=== PATIENT | male | born 2000 | race Caucasian/White ===

== ENCOUNTER 2019-03-13 10:09 | Emergency (ER) | payer SELFPAY ==
[~2019-03-13] VITALS: Ht 154.9 cm; Wt 77.0 kg
[2019-03-13] MEDS ORDERED: buprenorphine/naloxone 2-0.5mg sublingual tablet SL ONE (10:40)
[2019-03-13 11:53] VITALS: BP 103/58
[2019-03-13] MEDS ORDERED: buprenorphine/naloxone 8mg/2mg SL tablet SL PRN (12:00)
[2019-03-13] MEDS ORDERED: buprenorphine/naloxone 8MG-2MG SUBlingual film SL ONE (12:10)
--- NOTE | 2019-03-13 12:23 | NUR ---
Per KAROLYN Sanz, will re assess patient in 30 min post suboxone dose (see emar). Patient on phone to make follow up appointment with groups.
== END 2019-03-13 12:40 | disposition home or self-care (01) ==
LOC: EDSEX 10:10 → ER 10:10
DX: F11.23 Opioid dependence with withdrawal (principal); F15.90 Other stimulant use, unspecified, uncomplicated; Z59.0 Homelessness
CPT/HCPCS: 99284

== ENCOUNTER 2019-03-17 11:29 | Emergency (ER) | payer SELFPAY ==
[~2019-03-17] VITALS: Ht 182.9 cm; Wt 83.7 kg
--- NOTE | 2019-03-17 12:29 | NUR ---
STATES HE IS WITHDRAWING FROM HEROIN AND HAS BEEN UNABLE TO TOLERATE FOOD OR DRINK. FEELS MUSCLE CRAMPS, SHAKING, NAUSEA. PATIENT WOULD LIKE TO GET HELP IN QUITTING HIS DRUG ADDICTION. HERE 4 DAYS AGO FOR SAME PROBLEM. HOMELESS AT PRESENT.
[2019-03-17] MEDS ORDERED: buprenorphine/naloxone 8mg/2mg SL tablet SL PRN (13:05)
[2019-03-17] MEDS ORDERED: ondansetron/PF 4mg/2ml inj IV ONE (13:05)
[2019-03-17] MEDS ORDERED: pantoprazole 40 MG vial IV ONE (13:05)
[2019-03-17] MEDS ORDERED: normal saline 1000ML IV soln IVB ONE (13:05)
[2019-03-17] MEDS ORDERED: buprenorphine/naloxone 8MG-2MG SUBlingual film SL PRN (13:12)
[2019-03-17] MEDS ORDERED: buprenorphine/naloxone 8MG-2MG SUBlingual film SL ONE (15:00)
[2019-03-17] MEDS ORDERED: CLON-529 PO (15:01)
[2019-03-17] MEDS ORDERED: ONDA8TAB13 PO (15:01)
[2019-03-17 15:21] VITALS: BP 105/52
== END 2019-03-17 15:29 | disposition home or self-care (01) ==
LOC: ER 11:29
DX: F11.23 Opioid dependence with withdrawal (principal); F12.90 Cannabis use, unspecified, uncomplicated; F17.200 Nicotine dependence, unspecified, uncomplicated; F10.99 Alcohol use, unspecified with unspecified alcohol-induced disorder; Z59.0 Homelessness; R11.10 Vomiting, unspecified; R19.7 Diarrhea, unspecified; Y90.9 Presence of alcohol in blood, level not specified
CPT/HCPCS: 96361; 96374; 96375; 99283; C9113; J2405; J7030